=== PATIENT | male | born 1945 | race Caucasian/White ===

== ENCOUNTER 2017-04-26 19:39 | Emergency (ER) | payer OTHER ==
[~2017-04-26] VITALS: Ht 162.6 cm; Wt 72.4 kg
[2017-04-26] MEDS ORDERED: 0.9% SODIUM CHLORIDE 10 ML SYRINGE IVP PRN (20:15)
[2017-04-26] MEDS ORDERED: RAPID SEQUENCE KIT [RSI] 1 EACH KIT ONE (20:45)
[2017-04-26 21:04] LABS: ABG A-A DIFF O2 583.2 mmHg (10-20.0); ABG BASE EXCESS -11.3 mmol/L (-2.0-3.0); ABG CARBOXYHEMOGLOBIN 1.3 % (0.0-1.5); ABG HCO3 15.2 mmol/L (22.0-26.0); ABG METHEMOGLOBIN 0.5 % (0.0-1.5); ABG OXYGEN SATURATION 90.8 % (95.0-98.0); ABG OXYHEMOGLOBIN 89.2 % (94.0-100.0); ABG PCO2 56 mmHg (35-45); ABG TOTAL HEMOGLOBIN 15.1 G/dL (12.0-18.0); PO2, ARTERIAL BG 74.5 mmHg (75.0-83.0); SOURCE, BLOOD GAS ARTERIAL
[2017-04-26] MEDS ORDERED: LABETALOL HCL 5 MG/ML 20 ML VIAL IVP ONE (21:15)
[2017-04-26 21:26] LABS: BASOPHILS % (AUTO) 0.6 % (0.0-2.0); EOSINOPHILS % (AUTO) 3.4 % (1.0-6.0); HEMOGLOBIN 14.4 g/dL (13.5-17.5); LYMPHOCYTES # (AUTO) 4.4 K/uL (1.0-4.8); LYMPHOCYTES % (AUTO) 27.5 % (22.0-44.0); MEAN CORPUSCULAR HEMOGLOBIN 27.7 pg (26.0-34.0); MEAN CORPUSCULAR HGB CONC 32.6 G/dL (31.0-37.0); MEAN CORPUSCULAR VOLUME 85 fL (80-100); MONOCYTES # (AUTO) 0.8 K/uL (0.1-1.0); MONOCYTES % (AUTO) 4.8 % (2.0-9.0); NEUTROPHILS # (AUTO) 10.1 K/uL (1.8-7.7); NEUTROPHILS % (AUTO) 63.7 % (40.0-70.0); PLATELET COUNT (AUTO) 331 K/uL (150-450); RED BLOOD CELL COUNT(AUTO) 5.18 MIL/uL (4.50-5.90)
[2017-04-26] MEDS ORDERED: NICARDipine 20 MG/DEXT,ISO-OSM 200 ML IV PRN (21:30)
[2017-04-26] MEDS ORDERED: LevETIRAcetam 1,000 MG in DEXTROSE 5%-WATER 100 ML IV ONE (21:30)
[2017-04-26 21:32] LABS: ANION GAP 17 mmol/L (8-16); CALCIUM, TOTAL 8.2 mg/dL (8.8-10.5); CARBON DIOXIDE 19 mmol/L (22-29); CHLORIDE 102 mmol/L (98-107); CREATININE 1.05 mg/dL (0.60-1.30); GLOMERULAR FILTR. RATE CALC > 60 mL/min (>60); GLUCOSE,RANDOM 284 mg/dL (70-110); POTASSIUM 3.9 mmol/L (3.5-5.1); SODIUM SERUM 138 mmol/L (136-145); UREA NITROGEN, BLOOD 15 mg/dL (7-18)
[2017-04-26 21:52] LABS: INR 1.1 (0.9-1.1); PROTHROMBIN TIME 11.2 SEC (9.4-11.6)
[2017-04-26 21:58] LABS: ALANINE AMINOTRANSFERASE 21 U/L (12-78); ALKALINE PHOSPHATASE 53 U/L (46-116); ASPARTATE AMINOTRANSFERASE 26 U/L (15-37); BILIRUBIN,TOTAL 0.3 mg/dL (0.1-1.0); CREATINE KINASE, TOTAL 79 U/L (39-308); TOTAL PROTEIN, SERUM 7.2 g/dL (6.4-8.2)
[2017-04-26 22:01] LABS: CREATINE KINASE MB < 0.5 ng/mL (0-5)
[2017-04-26 22:15] VITALS: BP 100/71
[2017-04-26] MEDS ORDERED: RINGERS SOLUTION,LACTATED 1,000 ML IV ONE (22:30)
[2017-04-26] MEDS ORDERED: ACETAMINOPHEN 650 MG RECTAL SUPPOSITORY PR ONE (22:30)
[2017-04-26 22:36] LABS: ABG PH 7.123 (7.35-7.450); SITE, BLOOD GAS LFT RADIAL
[2017-04-26 22:37] LABS: O2 DEVICE,BLOOD GAS VENTILATOR (ROOM AIR); VT, ABG 500 ml
[2017-04-26 22:38] LABS: PEEP,BG 5 cm H2O; SPONTANEOUS VT, BG 477 ml
== END 2017-04-27 01:10 | disposition short-term general hospital (02) ==
LOC: EDBD 19:41 → EMS 19:41
DX: I63.9 Cerebral infarction, unspecified (principal); I10 Essential (primary) hypertension; I48.91 Unspecified atrial fibrillation
CPT/HCPCS: 31500; 36415; 51702; 70450; 70496; 71045; 80053; 82550; 82553; 82805; 84484; 85025; 85610; 85730; 93005; 99291; 99292; J3490; J7120; 94002; J0712; J7060